=== PATIENT | male | born 1960 | race Two or more races ===

== ENCOUNTER 2016-09-19 09:02 | Day surgery (SDC) | payer OTHER ==
[~2016-09-19] VITALS: Ht 165.1 cm; Wt 64.9 kg
[2016-09-19 10:56] VITALS: Ht 165.1 cm; Wt 64.9 kg
[2016-09-19] MEDS ORDERED: ASPIRIN (11:03)
[2016-09-19] MEDS ORDERED: LOSARTAN (11:03)
[2016-09-19] MEDS ORDERED: NORVASC (11:03)
[2016-09-19] MEDS ORDERED: ATORVASTATIN (11:03)
[2016-09-19 11:31] VITALS: BP 124/71; PULSE 54; RESP 18
[2016-09-19] MEDS ORDERED: FENTAnyl 50 MCG/ML VIAL ONE (12:56)
[2016-09-19] MEDS ORDERED: MIDAZOLAM 1 MG/ML 2 ML INJ ONE ×2 (12:56)
[2016-09-19 13:12] VITALS: BP 117/72; RESP 20
--- NOTE | 2016-09-19 22:17 | GILP ---
DATE OF PROCEDURE: PROCEDURE: Colonoscopy with biopsy. PREOPERATIVE DIAGNOSIS: Screening colonoscopy to rule out colon polyps. POSTOPERATIVE DIAGNOSIS: A 3 mm flat polyp was noted, seems to have the appearance of a raised poly p from the mucosa. This was removed with a cold biopsy forceps. Rest of the colon normal. DESCRIPTION OF PROCEDURE: After informed written consent was obtained, the patient was asked to lie on the left lateral side and 3 mg Versed and 50 mcg of fentanyl was given as intravenous anesthesia . When the patient became somnolent, the Olympus video colonoscope was introduced into the rectum and scope was advanced all the way to the cecum. About 3 mm of raised polyp was noted on the cecal fold . This was completely removed with help of a biopsy forceps. Terminal ileum was examined. No pict ures were taken. On the way out, no additional abnormalities detected and thorough examination was carried out and no hemorrhoids were noted except some skin tags and the procedure was terminated. PLAN: Recommend wait for the pathology report. Dictated By: KARTHIK FLANNERY/ABDIFATAH Conf#: [id number] DID#: [id number] CC: [facility]; KARTHIK BRAVO MD;*End*
== END 2016-09-19 13:28 | disposition home or self-care (01) ==
LOC: GIL 09:02
PROVIDERS: ATTEND Internal Medicine Gastroenterology
DX: Z12.11 Encounter for screening for malignant neoplasm of colon (principal); D12.0 Benign neoplasm of cecum; I25.10 Atherosclerotic heart disease of native coronary artery without angina pectoris; I10 Essential (primary) hypertension
CPT/HCPCS: 45380; 88305; J2250; J3010; Z7610